=== PATIENT | female | born 1980 | race Caucasian/White ===

== ENCOUNTER 2019-03-25 12:55 | Emergency (ER) | payer MEDICARE, OTHER ==
[~2019-03-25] VITALS: Ht 170.2 cm; Wt 52.2 kg
[~2019-03-25 12:55] MED LIST: ACEASPCAF; ACET500 PO; ALBU90OI; ALBU90OI INH; ALBU90OI6 INH; AMOCLA875 PO; AMOX500 PO; ARIP10; ASCO500; AZIT500 PO; Amoxicillin500 MG PO; BENZ1; BENZ2; CEFU250 PO; CLON1; CLOZ100; CLOZ25; CLOZARIL; CODGUAEL PO; COGENTIN; CRUTCH3 USE; CYCL10 PO; DILANTIN; DIPH50 PO; DIVA250EC; DIVA250EC PO; DIVA250ER PO; DIVA500EC; DIVA500ER; DOCU100; DOXY100 PO; DULO30; ESCI20; FISH1000; GABA300 PO; HALO1; HALO5; HYDACE5 PO; HYDACE7.5; IBUP600; IBUP600 PO; IBUP800 PO; LAMO25; LAMO25 PO; LAMO5; LAVAP4L PO; LEVSOD100; LEVSOD50; LEVSOD50 PO; LIDO5TP TOP; LORA1; LORA1 PO; Lamictal100 MG PO; MULVITMINE; MUSCLE RELAXANT; NAPR220; NAPR500 PO; NAPR550 PO; NIFE60ER; NITR100CA PO; OLAN10; OLAN20; ONDA4 PO; OSEL75CA PO; OXYACE5T PO; Ocuflox5 ML BOTHEYES; PAROEX473 ML MM; PHENA200; PHENY100ER; PHENY100ER PO; PRED10 PO; PRED20 PO; PROM25; PROM25 PO; QUET100; QUET200; RANI150; RANI150 PO; RISP1; RISP3; RISP4; RXCEPH500 PO; RXHYDACE PO; RXNAPNA550 PO; RXPROACE PO; RXSULTRIDS PO; RXTRAM50 PO; SERT25; STOMUL; SULTRIDS PO; SULTRISS PO; TRAM50; TRAM50 PO; TRAZ100; TRAZ50; Ultram50 MG PO; VENL75; ZONI100 PO; [UNRECOGNIZED DRUG - OTHER]; [UNRECOGNIZED DRUG - OTHER]; [UNRECOGNIZED DRUG - REMARK]
[2019-03-25 14:16] LABS: BASOPHILS ABSOLUTE AUTO 0.01 K/mm3 (0.00-0.23); BASOPHILS PERCENT AUTO 0 % (0-2); EOSINOPHILS ABSOLUTE AUTO 0.05 K/mm3 (0.00-0.68); EOSINOPHILS PERCENT AUTO 1 % (0-6); Hematocrit 43.7 % (33.0-51.0); Hemoglobin 14.3 g/dL (11.5-16.0); IMMATURE GRAN ABSOLUTE AUTO 0.02 K/mm3 (0.00-0.10); IMMATURE GRAN PERCENT AUTO 0 % (0-1); LYMPHOCYTES ABSOLUTE AUTO 1.42 K/mm3 (0.84-5.20); LYMPHOCYTES PERCENT AUTO 26 % (21-46); MONOCYTES ABSOLUTE AUTO 0.64 K/mm3 (0.16-1.47); MONOCYTES PERCENT AUTO 12 % (4-13); Mean Corpuscular HGB 28.7 pg (26.0-34.0); Mean Corpuscular HGB Conc 32.7 g/dL (31.5-36.5); Mean Corpuscular Volume 88 fL (80-100); Mean Platelet Volume 9.5 fL (9.1-12.4); NEUTROPHILS ABSOLUTE AUTO 3.32 K/mm3 (1.96-9.15); NEUTROPHILS PERCENT AUTO 61 % (41-73); Platelet Count 330 K/mm3 (150-400); RDW Coefficient Variation 12.7 % (11.7-14.2); Red Blood Cell Count 4.98 M/mm3 (3.80-5.20); White Blood Cell Count 5.46 K/mm3 (4.00-11.30)
[2019-03-25 14:32] LABS: Alanine Aminotransfer (ALT/SGP 25 U/L (12-78); Albumin, Blood 4.3 g/dL (3.4-5.0); Albumin/Globulin Ratio 1.3 (0.8-1.8); Alk Phos 61 U/L (50-136); Anion Gap 2 mmol/L (6-16); Aspartate Aminotrans (AST/SGOT 16 U/L (12-37); Bilirubin, Total 0.3 mg/dL (0.1-1.0); Blood Urea Nitrogen 13 mg/dL (8-24); Bun/Creatinine Ratio 18.4 (12.0-20.0); CO2, Blood 28 mmol/L (21-32); Calcium, Blood 9.3 mg/dL (8.5-10.1); Chloride, Blood 109 mmol/L (98-108); Creatinine, Blood 0.71 mg/dL (0.40-1.00); Globulin, Blood 3.3 g/dL (2.2-4.0); Glomerular Filtration Rate >60 (60-); Glucose, Blood 51 mg/dL (70-99); Potassium, Blood 3.8 mmol/L (3.5-5.5); Sodium, Blood 139 mmol/L (136-145); Total Protein, Blood 7.6 g/dL (6.4-8.2)
[2019-03-25 15:45] LABS: Source, Urine Clean Catch
[2019-03-25 15:48] LABS: Bilirubin, Urine Neg (Neg); Blood, Urine Neg (Neg); Glucose Qualitative, Urine Neg (Neg); Ketones, Urine 1+ (Neg); Leukocyte Esterase, Urine 3+ (Neg); Nitrite, Urine Neg (Neg); Protein, Urine 1+ (Neg); Urobilinogen, Urine 1+ (Normal)
[2019-03-25 16:07] LABS: Appearance, Urine Clear (Clear); Color, Urine Yellow (P-Yellow)
[2019-03-25 16:08] LABS: White Blood Cells, Urine 25-50 /hpf (0-5)
[2019-03-25 16:09] LABS: Bacteria Mod /hpf; Red Blood Cells, Urine 0-2 /hpf (0-2); Squamous Epithelial Cells Mod /hpf (Few)
[2019-03-26 08:29] LABS: Candida species (DNA Probe) Negative (NEGATIVE); G. vaginalis (DNA Probe) Negative (NEGATIVE); T. vaginalis (DNA Probe) Negative (NEGATIVE)
[2019-03-26 22:06] LABS: CHLAMYDIA TRACHOMATIS, NAA Negative (Negative); NEISSERIA GONORRHOEAE, NAA Negative (Negative)
== END 2019-03-25 18:38 | disposition home or self-care (01) ==
LOC: ER 12:55
PROVIDERS: Emergency Medicine; Physician Assistant
DX: N84.1 Polyp of cervix uteri (principal); G40.909 Epilepsy, unspecified, not intractable, without status epilepticus; F17.210 Nicotine dependence, cigarettes, uncomplicated
CPT/HCPCS: 36415; 76830; 76856; 80053; 81001; 84703; 85025; 87086; 87480; 87491; 87510; 87591; 87660; 96365; 96375; 99284-25; A9270-GY; J0696; J1885

== ENCOUNTER → 2019-04-08 | Outpatient (CLI) | payer MEDICARE, OTHER ==
[2019-04-12 15:07] LABS: HPV 16 Negative (Negative); HPV 18 Positive (Negative); HPV OTHER HR TYPES Negative (Negative)
== END | disposition home or self-care (01) ==
LOC: LAB 17:36 → LAB SHORT 17:36
PROVIDERS: Obstetrics & Gynecology
DX: Z01.419 Encounter for gynecological examination (general) (routine) without abnormal findings (principal); N89.8 Other specified noninflammatory disorders of vagina; N84.1 Polyp of cervix uteri; N87.9 Dysplasia of cervix uteri, unspecified
CPT/HCPCS: 87070; 87205; 87624; 87625; 88305; G0123

== ENCOUNTER 2019-07-14 18:22 | Emergency (ER) | payer MEDICARE, OTHER ==
[~2019-07-14] VITALS: Ht 170.2 cm; Wt 47.6 kg
[2019-07-14 19:25] LABS: Source, Urine Clean Catch
[2019-07-14 19:33] LABS: Bilirubin, Urine Neg (Neg); Blood, Urine 5+ (Neg); Glucose Qualitative, Urine Neg (Neg); Ketones, Urine Neg (Neg); Leukocyte Esterase, Urine 3+ (Neg); Nitrite, Urine Neg (Neg); Protein, Urine 1+ (Neg); Urobilinogen, Urine NORM (Normal)
[2019-07-14 20:14] LABS: Appearance, Urine Hazy (Clear); Color, Urine Yellow (P-Yellow)
[2019-07-14 20:15] LABS: Bacteria Few /hpf; Red Blood Cells, Urine TNTC /hpf (0-2); Squamous Epithelial Cells Rare /hpf (Few)
== END 2019-07-14 21:44 | disposition left against medical advice (07) ==
LOC: ER 18:22
PROVIDERS: Internal Medicine
DX: Z53.21 Procedure and treatment not carried out due to patient leaving prior to being seen by health care provider (principal)
CPT/HCPCS: 81001; 81025; 87086

== ENCOUNTER 2019-07-16 04:20 | Emergency (ER) | payer MEDICARE, OTHER ==
[~2019-07-16] VITALS: Ht 170.2 cm; Wt 47.6 kg
[2019-07-16 05:04] LABS: Hemoglobin 12.2 g/dL (11.5-16.0)
[2019-07-16 05:24] LABS: Alanine Aminotransfer (ALT/SGP 18 U/L (12-78); Albumin/Globulin Ratio 1.4 (0.8-1.8); Alk Phos 58 U/L (50-136); Anion Gap 5 mmol/L (6-16); Aspartate Aminotrans (AST/SGOT 11 U/L (12-37); Bilirubin, Total 0.2 mg/dL (0.1-1.0); Blood Urea Nitrogen 13 mg/dL (8-24); Bun/Creatinine Ratio 17.7 (12.0-20.0); CO2, Blood 25 mmol/L (21-32); Calcium, Blood 9.1 mg/dL (8.5-10.1); Chloride, Blood 110 mmol/L (98-108); Creatinine, Blood 0.73 mg/dL (0.40-1.00); Globulin, Blood 2.8 g/dL (2.2-4.0); Glomerular Filtration Rate >60 (60-); Glucose, Blood 89 mg/dL (70-99); Potassium, Blood 3.7 mmol/L (3.5-5.5); Sodium, Blood 140 mmol/L (136-145); Total Protein, Blood 6.8 g/dL (6.4-8.2)
[2019-07-16] MEDS ORDERED: KETO10 PO (06:36)
== END 2019-07-16 06:45 | disposition home or self-care (01) ==
LOC: ER 04:20
PROVIDERS: Emergency Medicine
DX: N83.01 Follicular cyst of right ovary (principal); F17.210 Nicotine dependence, cigarettes, uncomplicated; Z88.8 Allergy status to other drugs, medicaments and biological substances
CPT/HCPCS: 36415; 76856; 80053; 84703; 85014; 85018; 86850; 86900; 86901; 96361; 96374; 99284-25; J1885; J7030

== ENCOUNTER 2019-10-15 06:36 | Emergency (ER) | payer MEDICARE, OTHER ==
[~2019-10-15] VITALS: Ht 167.6 cm; Wt 51.3 kg
[~2019-10-15 06:36] MED LIST changes: +KETO10 PO
[2019-10-15 07:34] LABS: BASOPHILS ABSOLUTE AUTO 0.03 K/mm3 (0.00-0.23); BASOPHILS PERCENT AUTO 0 % (0-2); EOSINOPHILS ABSOLUTE AUTO 0.11 K/mm3 (0.00-0.68); EOSINOPHILS PERCENT AUTO 2 % (0-6); Hematocrit 36.3 % (33.0-51.0); Hemoglobin 12.4 g/dL (11.5-16.0); IMMATURE GRAN ABSOLUTE AUTO 0.02 K/mm3 (0.00-0.10); IMMATURE GRAN PERCENT AUTO 0 % (0-1); LYMPHOCYTES ABSOLUTE AUTO 2.85 K/mm3 (0.84-5.20); LYMPHOCYTES PERCENT AUTO 40 % (21-46); MONOCYTES ABSOLUTE AUTO 0.72 K/mm3 (0.16-1.47); MONOCYTES PERCENT AUTO 10 % (4-13); Mean Corpuscular HGB 29.6 pg (26.0-34.0); Mean Corpuscular HGB Conc 34.2 g/dL (31.5-36.5); Mean Corpuscular Volume 87 fL (80-100); Mean Platelet Volume 9.4 fL (9.1-12.4); NEUTROPHILS ABSOLUTE AUTO 3.34 K/mm3 (1.96-9.15); NEUTROPHILS PERCENT AUTO 47 % (41-73); Platelet Count 329 K/mm3 (150-400); RDW Coefficient Variation 11.9 % (11.7-14.2); RDW Standard Deviation 38.3 fL (35.1-46.3); Red Blood Cell Count 4.19 M/mm3 (3.80-5.20); White Blood Cell Count 7.07 K/mm3 (4.00-11.30)
== END 2019-10-15 08:33 | disposition home or self-care (01) ==
LOC: ER 06:36
PROVIDERS: Emergency Medicine
DX: N92.0 Excessive and frequent menstruation with regular cycle (principal); F17.210 Nicotine dependence, cigarettes, uncomplicated; Z88.8 Allergy status to other drugs, medicaments and biological substances
CPT/HCPCS: 36415; 85025; J1050

== ENCOUNTER → 2019-10-19 | Outpatient (CLI) | payer MEDICARE, OTHER ==
[2019-10-21 15:10] LABS: HPV 16 Negative (Negative); HPV 18 Negative (Negative); HPV OTHER HR TYPES Negative (Negative)
== END | disposition home or self-care (01) ==
LOC: LAB 15:45 → LAB SHORT 15:45
PROVIDERS: Obstetrics & Gynecology
DX: R87.810 Cervical high risk human papillomavirus (HPV) DNA test positive (principal)
CPT/HCPCS: 87624; 88142

== ENCOUNTER 2019-11-11 03:59 | Emergency (ER) | payer MEDICARE, OTHER ==
[~2019-11-11] VITALS: Ht 170.2 cm; Wt 54.0 kg
== END 2019-11-11 05:44 | disposition home or self-care (01) ==
LOC: ER 03:59
DX: G40.909 Epilepsy, unspecified, not intractable, without status epilepticus (principal); F31.9 Bipolar disorder, unspecified; F17.210 Nicotine dependence, cigarettes, uncomplicated
CPT/HCPCS: 70450; J1200; J1885

== ENCOUNTER 2020-06-17 00:09 | Emergency (ER) | payer MEDICARE, OTHER ==
[~2020-06-17] VITALS: Ht 170.2 cm; Wt 54.9 kg
[2020-06-17] MEDS ORDERED: DOXYCYCLINE HY200 M1 PO (00:33)
== END 2020-06-17 00:43 | disposition home or self-care (01) ==
LOC: ER 00:09
DX: K04.7 Periapical abscess without sinus (principal); F17.210 Nicotine dependence, cigarettes, uncomplicated; Z88.4 Allergy status to anesthetic agent; Z88.8 Allergy status to other drugs, medicaments and biological substances
CPT/HCPCS: 99283

== ENCOUNTER 2021-09-27 09:51 | Emergency (ER) | payer MEDICARE, OTHER ==
[~2021-09-27] VITALS: Ht 170.2 cm; Wt 52.2 kg
[~2021-09-27 09:51] MED LIST changes: +DOXYCYCLINE HY200 M1 PO
[2021-09-27] MEDS ORDERED: ONDA4ODT MM (10:19)
== END 2021-09-27 10:49 | disposition home or self-care (01) ==
LOC: ER 09:51
DX: U07.1 COVID-19 (principal); Z88.8 Allergy status to other drugs, medicaments and biological substances; Z79.899 Other long term (current) drug therapy; G40.909 Epilepsy, unspecified, not intractable, without status epilepticus; F17.210 Nicotine dependence, cigarettes, uncomplicated
CPT/HCPCS: 99284; A9270

== ENCOUNTER 2021-11-04 03:28 | Emergency (ER) | payer MEDICARE, OTHER ==
[~2021-11-04] VITALS: Ht 170.2 cm; Wt 53.5 kg
[~2021-11-04 03:28] MED LIST changes: +ONDA4ODT MM
[2021-11-04 04:01] LABS: BASOPHILS ABSOLUTE AUTO 0.03 K/mm3 (0.00-0.23); BASOPHILS PERCENT AUTO 0 % (0-2); EOSINOPHILS ABSOLUTE AUTO 0.16 K/mm3 (0.00-0.68); EOSINOPHILS PERCENT AUTO 2 % (0-6); Hematocrit 38.3 % (33.0-51.0); Hemoglobin 12.9 g/dL (11.5-16.0); IMMATURE GRAN ABSOLUTE AUTO 0.02 K/mm3 (0.00-0.10); IMMATURE GRAN PERCENT AUTO 0 % (0-1); LYMPHOCYTES ABSOLUTE AUTO 2.38 K/mm3 (0.84-5.20); LYMPHOCYTES PERCENT AUTO 36 % (21-46); MONOCYTES ABSOLUTE AUTO 0.72 K/mm3 (0.16-1.47); MONOCYTES PERCENT AUTO 11 % (4-13); Mean Corpuscular HGB 28.9 pg (26.0-34.0); Mean Corpuscular HGB Conc 33.7 g/dL (31.5-36.5); Mean Corpuscular Volume 86 fL (80-100); Mean Platelet Volume 9.2 fL (9.1-12.4); NEUTROPHILS PERCENT AUTO 51 % (41-73); Platelet Count 366 K/mm3 (150-400); RDW Coefficient Variation 12.5 % (11.7-14.2); RDW Standard Deviation 39.2 fL (35.1-46.3); Red Blood Cell Count 4.47 M/mm3 (3.80-5.20); White Blood Cell Count 6.71 K/mm3 (4.00-11.30)
[2021-11-04 04:23] LABS: Alanine Aminotransfer (ALT/SGP 22 U/L (12-78); Albumin/Globulin Ratio 1.2 (0.8-1.8); Alk Phos 61 U/L (50-136); Anion Gap 6 mmol/L (6-16); Aspartate Aminotrans (AST/SGOT 12 U/L (12-37); Bilirubin, Total 0.4 mg/dL (0.1-1.0); Blood Urea Nitrogen 16 mg/dL (8-24); Bun/Creatinine Ratio 20.5 (12.0-20.0); CO2, Blood 28 mmol/L (21-32); Calcium, Blood 9.6 mg/dL (8.5-10.1); Chloride, Blood 105 mmol/L (98-108); Creatinine, Blood 0.78 mg/dL (0.40-1.00); Globulin, Blood 3.2 g/dL (2.2-4.0); Glomerular Filtration Rate >60 (60-); Glucose, Blood 80 mg/dL (70-99); Potassium, Blood 3.7 mmol/L (3.5-5.5); Sodium, Blood 139 mmol/L (136-145); Total Protein, Blood 7.2 g/dL (6.4-8.2)
== END 2021-11-04 06:39 | disposition home or self-care (01) ==
LOC: ER 03:28
PROVIDERS: Student in an Organized Health Care Education/Training Program
DX: R07.9 Chest pain, unspecified (principal); F17.210 Nicotine dependence, cigarettes, uncomplicated; Z88.8 Allergy status to other drugs, medicaments and biological substances
CPT/HCPCS: 36415; 71046; 80053; 84484; 85025; 93005; 93010; 99285-25

== ENCOUNTER 2022-04-25 07:06 | Emergency (ER) | payer MEDICARE, OTHER ==
[~2022-04-25] VITALS: Ht 170.2 cm; Wt 55.8 kg
[2022-04-25 09:35] LABS: BASOPHILS ABSOLUTE AUTO 0.02 K/mm3 (0.00-0.23); BASOPHILS PERCENT AUTO 0 % (0-2); EOSINOPHILS ABSOLUTE AUTO 0.14 K/mm3 (0.00-0.68); EOSINOPHILS PERCENT AUTO 2 % (0-6); Hematocrit 42.5 % (33.0-51.0); Hemoglobin 14.6 g/dL (11.5-16.0); IMMATURE GRAN ABSOLUTE AUTO 0.03 K/mm3 (0.00-0.10); IMMATURE GRAN PERCENT AUTO 0 % (0-1); LYMPHOCYTES ABSOLUTE AUTO 1.71 K/mm3 (0.84-5.20); LYMPHOCYTES PERCENT AUTO 18 % (21-46); MONOCYTES ABSOLUTE AUTO 0.85 K/mm3 (0.16-1.47); MONOCYTES PERCENT AUTO 9 % (4-13); Mean Corpuscular HGB 29.1 pg (26.0-34.0); Mean Corpuscular HGB Conc 34.4 g/dL (31.5-36.5); Mean Corpuscular Volume 85 fL (80-100); Mean Platelet Volume 9.2 fL (9.1-12.4); NEUTROPHILS ABSOLUTE AUTO 6.89 K/mm3 (1.96-9.15); NEUTROPHILS PERCENT AUTO 72 % (41-73); Platelet Count 410 K/mm3 (150-400); RDW Coefficient Variation 13.2 % (11.7-14.2); RDW Standard Deviation 40.3 fL (35.1-46.3); Red Blood Cell Count 5.01 M/mm3 (3.80-5.20); White Blood Cell Count 9.64 K/mm3 (4.00-11.30)
[2022-04-25 09:51] LABS: Albumin, Blood 4.1 g/dL (3.4-5.0); Albumin/Globulin Ratio 1.1 (0.8-1.8); Bilirubin, Total 0.3 mg/dL (0.1-1.0); Bun/Creatinine Ratio 17.3 (12.0-20.0); Calcium, Blood 9.4 mg/dL (8.5-10.1); Creatinine, Blood 0.64 mg/dL (0.40-1.00); Globulin, Blood 3.8 g/dL (2.2-4.0); Potassium, Blood 3.6 mmol/L (3.5-5.5); Total Protein, Blood 7.9 g/dL (6.4-8.2)
[2022-04-25] MEDS ORDERED: AMOCLA875 PO (10:43)
== END 2022-04-25 11:26 | disposition home or self-care (01) ==
LOC: ER 07:06
PROVIDERS: Student in an Organized Health Care Education/Training Program
DX: H66.93 Otitis media, unspecified, bilateral (principal); K12.2 Cellulitis and abscess of mouth; F17.210 Nicotine dependence, cigarettes, uncomplicated; Z88.4 Allergy status to anesthetic agent; Z88.8 Allergy status to other drugs, medicaments and biological substances
CPT/HCPCS: 36415; 70470; 80053; 83605; 85025; A9270; J1200; J1885; J2765; J7030; Q9967

== ENCOUNTER 2022-04-28 10:37 | Emergency (ER) | payer MEDICARE, OTHER ==
[~2022-04-28] VITALS: Ht 170.2 cm; Wt 55.3 kg
[2022-04-28] MEDS ORDERED: HYDR1TAB94 PO (12:05)
[2022-04-28] MEDS ORDERED: CIPROFLOX-DEXA7.5 ML RIGHTEAR (12:05)
[2022-04-29] MEDS ORDERED: Naltrexone HCl50 MG PO (16:05)
[2022-04-29] MEDS ORDERED: TOPI50 PO (16:05)
[2022-04-29] MEDS ORDERED: GABA300 PO (16:05)
[2022-04-29] MEDS ORDERED: Amlodipine Bes2.5 MG PO (16:05)
[2022-04-29] MEDS ORDERED: NEOPOLHCSU BOTHEARS (16:06)
[2022-04-29] MEDS ORDERED: ONDA4 (16:06)
== END 2022-04-28 12:26 | disposition home or self-care (01) ==
LOC: ER 10:37
DX: K04.7 Periapical abscess without sinus (principal); H92.01 Otalgia, right ear; F17.210 Nicotine dependence, cigarettes, uncomplicated
CPT/HCPCS: A9270

== ENCOUNTER 2022-04-29 14:46 | Emergency (ER) | payer MEDICARE, OTHER ==
[~2022-04-29] VITALS: Ht 170.2 cm; Wt 54.4 kg
[~2022-04-29 14:46] MED LIST changes: +CIPROFLOX-DEXA7.5 ML RIGHTEAR; +HYDR1TAB94 PO
[2022-04-29 15:46] LABS: BASOPHILS ABSOLUTE AUTO 0.02 K/mm3 (0.00-0.23); BASOPHILS PERCENT AUTO 0 % (0-2); EOSINOPHILS ABSOLUTE AUTO 0.12 K/mm3 (0.00-0.68); EOSINOPHILS PERCENT AUTO 2 % (0-6); Hematocrit 38.3 % (33.0-51.0); Hemoglobin 12.5 g/dL (11.5-16.0); IMMATURE GRAN ABSOLUTE AUTO 0.02 K/mm3 (0.00-0.10); IMMATURE GRAN PERCENT AUTO 0 % (0-1); LYMPHOCYTES ABSOLUTE AUTO 1.68 K/mm3 (0.84-5.20); LYMPHOCYTES PERCENT AUTO 27 % (21-46); MONOCYTES ABSOLUTE AUTO 0.62 K/mm3 (0.16-1.47); MONOCYTES PERCENT AUTO 10 % (4-13); Mean Corpuscular HGB 28.5 pg (26.0-34.0); Mean Corpuscular HGB Conc 32.6 g/dL (31.5-36.5); Mean Corpuscular Volume 87 fL (80-100); NEUTROPHILS ABSOLUTE AUTO 3.68 K/mm3 (1.96-9.15); NEUTROPHILS PERCENT AUTO 60 % (41-73); Platelet Count 433 K/mm3 (150-400); RDW Coefficient Variation 13.3 % (11.7-14.2); RDW Standard Deviation 43.1 fL (35.1-46.3); Red Blood Cell Count 4.38 M/mm3 (3.80-5.20); White Blood Cell Count 6.14 K/mm3 (4.00-11.30)
[2022-04-29] MEDS ORDERED: GABA300 PO (16:05)
[2022-04-29] MEDS ORDERED: TOPI50 PO (16:05)
[2022-04-29] MEDS ORDERED: Naltrexone HCl50 MG PO (16:05)
[2022-04-29] MEDS ORDERED: Amlodipine Bes2.5 MG PO (16:05)
[2022-04-29] MEDS ORDERED: ONDA4 (16:06)
[2022-04-29] MEDS ORDERED: NEOPOLHCSU BOTHEARS (16:06)
[2022-04-29 16:14] LABS: Albumin, Blood 3.7 g/dL (3.4-5.0); Bilirubin, Total 0.2 mg/dL (0.1-1.0); Bun/Creatinine Ratio 17.5 (12.0-20.0); Calcium, Blood 9.5 mg/dL (8.5-10.1); Creatinine, Blood 0.69 mg/dL (0.40-1.00); Globulin, Blood 3.7 g/dL (2.2-4.0); Potassium, Blood 3.4 mmol/L (3.5-5.5); Total Protein, Blood 7.4 g/dL (6.4-8.2)
== END 2022-04-29 19:14 | disposition home or self-care (01) ==
LOC: ER 14:46
PROVIDERS: Student in an Organized Health Care Education/Training Program
DX: K04.7 Periapical abscess without sinus (principal); R78.81 Bacteremia; Z79.899 Other long term (current) drug therapy; Z88.4 Allergy status to anesthetic agent; Z88.8 Allergy status to other drugs, medicaments and biological substances
CPT/HCPCS: 36415; 80053; 83605; 85025; J0295

== ENCOUNTER 2022-04-30 18:16 | Emergency (ER) | payer MEDICARE, OTHER ==
[~2022-04-30] VITALS: Ht 170.2 cm; Wt 54.4 kg
[~2022-04-30 18:16] MED LIST changes: +Amlodipine Bes2.5 MG PO; +NEOPOLHCSU BOTHEARS; +Naltrexone HCl50 MG PO; +ONDA4; +TOPI50 PO
[2022-04-30 18:56] LABS: BASOPHILS ABSOLUTE AUTO 0.03 K/mm3 (0.00-0.23); BASOPHILS PERCENT AUTO 1 % (0-2); EOSINOPHILS ABSOLUTE AUTO 0.12 K/mm3 (0.00-0.68); EOSINOPHILS PERCENT AUTO 2 % (0-6); Hemoglobin 12.1 g/dL (11.5-16.0); IMMATURE GRAN ABSOLUTE AUTO 0.01 K/mm3 (0.00-0.10); IMMATURE GRAN PERCENT AUTO 0 % (0-1); LYMPHOCYTES ABSOLUTE AUTO 1.85 K/mm3 (0.84-5.20); LYMPHOCYTES PERCENT AUTO 30 % (21-46); MONOCYTES ABSOLUTE AUTO 0.62 K/mm3 (0.16-1.47); MONOCYTES PERCENT AUTO 10 % (4-13); Mean Corpuscular HGB 29.1 pg (26.0-34.0); Mean Corpuscular HGB Conc 33.6 g/dL (31.5-36.5); Mean Corpuscular Volume 87 fL (80-100); NEUTROPHILS ABSOLUTE AUTO 3.56 K/mm3 (1.96-9.15); NEUTROPHILS PERCENT AUTO 58 % (41-73); Platelet Count 405 K/mm3 (150-400); RDW Coefficient Variation 13.5 % (11.7-14.2); RDW Standard Deviation 43.1 fL (35.1-46.3); Red Blood Cell Count 4.16 M/mm3 (3.80-5.20); White Blood Cell Count 6.19 K/mm3 (4.00-11.30)
[2022-04-30 19:25] LABS: Albumin, Blood 3.6 g/dL (3.4-5.0); Bilirubin, Total 0.2 mg/dL (0.1-1.0); Bun/Creatinine Ratio 18.6 (12.0-20.0); Calcium, Blood 9.3 mg/dL (8.5-10.1); Creatinine, Blood 0.7 mg/dL (0.40-1.00); Globulin, Blood 3.6 g/dL (2.2-4.0); Potassium, Blood 3.7 mmol/L (3.5-5.5); Total Protein, Blood 7.2 g/dL (6.4-8.2)
== END 2022-04-30 21:00 | disposition left against medical advice (07) ==
LOC: ER 18:16
PROVIDERS: Physician Assistant
DX: R07.9 Chest pain, unspecified (principal); Z53.21 Procedure and treatment not carried out due to patient leaving prior to being seen by health care provider
CPT/HCPCS: 36415; 71045; 80053; 84484; 85025; 93005; 93010

== ENCOUNTER 2022-08-28 16:25 | Emergency (ER) | payer MEDICARE, OTHER ==
[~2022-08-28] VITALS: Ht 170.2 cm; Wt 54.0 kg
== END 2022-08-28 20:29 | disposition left against medical advice (07) ==
LOC: ER 16:25
DX: R10.9 Unspecified abdominal pain (principal); Z79.899 Other long term (current) drug therapy; Z53.21 Procedure and treatment not carried out due to patient leaving prior to being seen by health care provider
CPT/HCPCS: 36415

== ENCOUNTER 2022-12-09 10:51 | Day surgery (SDC) | payer MEDICARE, OTHER ==
[~2022-12-09] VITALS: Ht 166 cm; Wt 49.7 kg
[2022-12-09] MEDS ORDERED: PERIDEX15 ML MM (12:14)
[2022-12-09] MEDS ORDERED: CEPH500 PO (12:14)
[2022-12-09] MEDS ORDERED: Nicoderm Cq1 EAC1 TOP (12:16)
--- NOTE | 2022-12-09 12:52 | NUR ---
Ambulatory in Day Surgery. Pre-Op teaching done. Pt verbalizes understanding. Patient confirms NPO status and agrees with scheduled surgery. Patient States Post-Procedure ride home has been arranged. PT STS OFFICE DID NOT PROVIDE CHLORHEXIDINE SCRUBS.
--- NOTE | 2022-12-09 14:05 | NUR ---
NICOTINE PATCH REMOVED PER ANESTHESIA REQUEST D/T USE OF LISA HUGGER DURING PROCEDURE. PT EDUCATION PROVIDED; PT IN AGREEMENT TO REMOVE PATCH.
--- NOTE | 2022-12-09 14:27 | NUR ---
12/09/22 1427 Miguelina Rodriguez NO PRE OP ABX PER .
--- NOTE | 2022-12-09 15:58 | NUR ---
SMALL AMOUNT OF BLOOD TINGED DRAINAGE TO ZOE PAD ON ARRIVAL TO STEP DOWN. PT RATES PAIN 3/10. STATES HUNGRY AND THIRSTY. DRANK 2 CUPS OF APPLE JUICE AND ATE VANILLA PUDDING. UP TO BATHROOM SBA, VOIDED. DRESSED, NEW ZOE PAD CHANGED. Discharged via wheelchair to private car for ride home. Discharge instructions reviewed with patient. Patient verbalizes understanding. Copy given to patient to take home. PT UNDERSTANDS TO TAKE TYLENOL AND IBUPROFEN NEEDED FOR PAIN PER INSTRUCTIONS. NEW NICOTINE PATCH IN PLACE TO LEFT UPPER ARM AT DISCHARGE.
== END 2022-12-09 15:55 | disposition home or self-care (01) ==
LOC: ORSCMMR 10:51 → ORD 12:15 → ORSCMMR 12:15
PROVIDERS: Obstetrics & Gynecology
PROC: 0UB98ZZ Excision of Uterus, Via Natural or Artificial Opening Endoscopic (ICD-10-PCS; principal; 2022-12-09 13:30)
PROC: 0UBC8ZZ Excision of Cervix, Via Natural or Artificial Opening Endoscopic (ICD-10-PCS; principal; 2022-12-09 13:30)
DX: N93.9 Abnormal uterine and vaginal bleeding, unspecified (principal); Z86.19 Personal history of other infectious and parasitic diseases; N84.1 Polyp of cervix uteri; I10 Essential (primary) hypertension; J44.9 Chronic obstructive pulmonary disease, unspecified; F17.210 Nicotine dependence, cigarettes, uncomplicated; E03.9 Hypothyroidism, unspecified; M79.7 Fibromyalgia; F31.9 Bipolar disorder, unspecified; Z79.899 Other long term (current) drug therapy
CPT/HCPCS: 88305; A9270; J1100; J1885; J2270; J2405; J2704; J3010; J7120

== ENCOUNTER → 2025-05-17 | Outpatient (CLI) | payer MEDICARE, OTHER ==
[~2025-05-17] MED LIST changes: +CEPH500 PO; +Nicoderm Cq1 EAC1 TOP; +PERIDEX15 ML MM
[2025-05-20 11:56] LABS: C. TRACHOMATIS BY TMA,THINPREP Negative (Negative); N. GONORRHOEAE BY TMA,THINPREP Negative (Negative)
[2025-05-23 09:09] LABS: HPVG SOURCE Cervical
== END | disposition home or self-care (01) ==
LOC: LAB SHORT 10:45 → LAB 10:45
PROVIDERS: Nurse Practitioner Family
DX: Z01.419 Encounter for gynecological examination (general) (routine) without abnormal findings (principal)
CPT/HCPCS: 87491; 87591; 87624; 87625; G0145

== ENCOUNTER 2025-05-26 14:56 | Emergency (ER) | payer MEDICARE, OTHER ==
[~2025-05-26] VITALS: Ht 167.6 cm; Wt 53.5 kg
[2025-05-26 15:34] VITALS: BP 116/76
== END 2025-05-26 15:42 | disposition home or self-care (01) ==
LOC: ER 14:56
DX: G40.909 Epilepsy, unspecified, not intractable, without status epilepticus (principal); F17.200 Nicotine dependence, unspecified, uncomplicated
CPT/HCPCS: 93005; 93010; 99284-25